=== PATIENT | male | born 2000 | race Caucasian/White ===

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

== ENCOUNTER 2020-03-07 17:13 | Emergency (ER) | payer SELFPAY ==
[~2020-03-07] VITALS: Ht 185.4 cm; Wt 84.0 kg
[~2020-03-07 17:13] MED LIST changes: -LISD40CA PO; +LISD40CA3 PO
[2020-03-07] MEDS ORDERED: TETRACAINE 0.5% OPHTH SOLUTION 4ML BOTTLE. OS ONE (17:45)
[2020-03-07] MEDS ORDERED: FLUORESCEIN 1MG EYE STRIP. OS ONE (17:45)
--- NOTE | 2020-03-07 17:48 | PHYS DOC ---
Past History Past Medical History: Other (GRIS BORDEN APRN) Past Surgical History: No Surgical History (GRIS BORDEN APRN) Smoking: Non-smoker Alcohol Use: None Drug Use: None (GRIS BORDEN APRN) Adult General Chief Complaint Chief Complaint: EYE PROBLEMS HPI HPI Patient is a 19-year-old male patient presenting to the ED today with with a piece of metal in his left eye. Patient states he was working with metal shavings with eye protection, he states he removed the glasses and was removing his clothing and a piece of metal flew into his left eye. Denies any vision loss. (GRIS BORDEN APRN) Review of Systems Review of Systems Constitutional: Denies fever or chills [] eye-reports piece of metal in the left eye. Musculoskeletal: Denies back pain or joint pain [] Integument: Denies rash or skin lesions [] Neurologic: Denies headache, focal weakness or sensory changes [] All other systems were reviewed and found to be within normal limits, except as documented in this note. (GRIS BORDEN APRN) Current Medications Current Medications Current Medications Medications (Trade) Dose Ordered Sig/Alek Start Time Stop Time Status Last Admin Dose Admin Fluorescein Sodium (Ful-Yomaira 1mg) 1 strip 1X ONCE 03/07/20 17:45 03/07/20 17:46 DC Tetracaine HCl (Tetracaine) 1 drop 1X ONCE 03/07/20 17:45 03/07/20 17:46 DC (GRIS BORDEN APRN) Allergies Allergies Allergies Coded Allergies Type Severity Reaction Last Updated Verified No Known Drug Allergies 04/23/13 No (GRIS BORDEN APRN) Physical Exam Physical Exam Constitutional: Well developed, well nourished, no acute distress, non-toxic appearance. [] Eyes: PERRLA, EOMI, left conjunctiva is slightly erythematous, there is an obvious tiny piece of metal at approximately 1830 position. Skin: Warm, dry, no erythema, no rash. [] Back: No tenderness, no CVA tenderness. [] Extremities: No tenderness, no cyanosis, no clubbing, ROM intact, no edema. [] Neurologic: Alert and oriented X 3, normal motor function, normal sensory function, no focal deficits noted. [] Psychologic: Affect normal, judgement normal, mood normal. [] (GRIS BORDEN APRN) EKG EKG [] (GRIS BORDEN APRN) Radiology/Procedures Radiology/Procedures Indication: This of metal in the left eye Procedure: The area of the foreign body was left cornea, local anesthesia over the foreign body site was tetracaine 2 drops. Clay was used to try and remove the metal. Patient reported he was getting lightheaded, I laid him back in the recliner and his passed out for less than 2 seconds. He was able to get up and walk towards bed in a different room. He is currently awake alert oriented x3. (GRIS BORDEN APRN) Heart Score Risk Factors: Risk Factors: DM, Current or recent (<one month) smoker, HTN, HLP, family history of CAD, obesity. Risk Scores: Risk Factors: DM, Current or recent (<one month) smoker, HTN, HLP, family history of CAD, obesity. (GRIS BORDEN APRN) Course & Med Decision Making Course & Med Decision Making Pertinent Labs and Imaging studies reviewed. (See chart for details) This is a 19-year-old male patient presenting to the ED today with a piece of metal in the left eye. I attempted to remove the piece of metal with a clay, patient passed out for less than 2 seconds in the process, see procedure note, h e was able to get up and walk to a different room where we laid him down. He feels better. He was discharged to home. Follow-up with ophthalmology tetanus up-to-date. Dr. Chacon evaluated patient (GRIS BORDEN APRN) Course & Med Decision Making I discussed the care of the patient with the [employer]/PA. I personally saw patient and repeated certain aspects of history and physical exam. I oversaw care after patient had transient self-limiting fainting episode while ED. I agree with the findings and plan of care as documented in the note above. (FRED CHACON DO) Dragon Disclaimer Dragon Disclaimer This electronic medical record was generated, in whole or in part, using a voice recognition dictation system. (GRIS BORDEN APRN) Departure Departure: Impression: Primary Impression: Corneal rust ring of left eye Additional Impression: Vasovagal syncope Disposition: 01 DC HOME SELF CARE/HOMELESS Condition: STABLE Referrals: BRAYDON PILLAI MD (PCP) Please follow-up with an sprinkling truck driver of your choice If you do not have one consider using [facility] Patient Instructions: Eye - Foreign Body Additional Instructions: You were evaluated in the emergency room for a piece of metal in the left eye. Please follow-up with an sprinkling truck driver to ensure it was completely removed. You unfortunately passed out during the procedure in the emergency room. Come back to the ED at any point symptoms worsen Scripts Erythromycin Base (Erythromycin) 1 Gm Oint...g. 0.5 INCH OP Q4HRS W/A for 7 Days, MISC Prov: GRIS BORDEN APRN 03/07/20 Problem Qualifiers GRIS BORDEN APRN Mar 07, 2020 17:48 FRED CHACON DO Mar 08, 2020 21:10
[2020-03-07] MEDS ORDERED: ERYT1OIN6 OP (18:45)
[2020-03-07 18:50] VITALS: BP 132/76
== END 2020-03-07 18:55 | disposition home or self-care (01) ==
LOC: ER 17:13
DX: T15.02XA Foreign body in cornea, left eye, initial encounter (principal); R55 Syncope and collapse; X58.XXXA Exposure to other specified factors, initial encounter; Y93.89 Activity, other specified; Y92.89 Other specified places as the place of occurrence of the external cause; Y99.8 Other external cause status
CPT/HCPCS: 65220; 99284